=== PATIENT | female | born 1970 | race African-American/Black ===

== ENCOUNTER 2016-12-15 16:14 | Observation (INO) | payer OTHER ==
[2016-12-15 16:33] VITALS: BMI 40.8
--- NOTE | 2016-12-15 17:24 | PDOC ---
History of Present Illness <Sanket Eugene - Last Filed: 12/15/16 18:33> - General History Source: Patient Exam Limitations: No Limitations - History of Present Illness Initial Comments: 12/15/16 18:09 The patient is a 46 year old female with a significant past medical history of anemia, sent by PCP to the Emergency Department with fatigue for two weeks. The patient states that she has had worsening exhaustion, fatigue, and shortness of breath on exertion over the past two weeks. As per Dr. Huizar, the patient needs a blood transfusion due to blood lost from fibroids. The patient denies this. The patient states she went to see Gaye MICHAELS for a Pap smear, though they informed her that she does not need one until March. The patient admits that she is anemic. The patient denies nausea, vomiting, and diarrhea. Patient denies constipation, or melena. Patient denies vaginal discharge, dysuria, or hematuria. Patient denies chest pain, or palpitations. Patient denies headache, or dizziness. PCP: Dr. Huizar <Tosha Darden - Last Filed: 12/15/16 18:40> - General Chief Complaint: Blood Transfusion Stated Complaint: PCP SENT Time Seen by Provider: 12/15/16 17:23 Past History - Past Medical History Anemia: Yes Asthma: No Cancer: No Cardiac Disorders: No CVA: No COPD: No CHF: No Dementia: No Diabetes: No GI Disorders: No Disorders: No HTN: No Hypercholesterolemia: No Liver Disease: No Seizures: No Thyroid Disease: No - Surgical History Abdominal Surgery: No Appendectomy: No Cardiac Surgery: No Cholecystectomy: No Lung Surgery: No Neurologic Surgery: No Orthopedic Surgery: No - Immunization History Immunization Up to Date: Yes - Psycho/Social/Smoking Cessation Hx Anxiety: No Suicidal Ideation: No Smoking Status: Yes Smoking History: Current every day smoker Have you smoked in the past 12 months: Yes Number of Cigarettes Smoked Daily: 5 If you are a former smoker, when did you quit?: 01/23/14 Information on smoking cessation initiated: Yes 'Breaking Loose' booklet given: 01/03/14 Hx Alcohol Use: No Drug/Substance Use Hx: No Substance Use Type: None Hx Substance Use Treatment: No <Sanket Eugene - Last Filed: 06/22/17 18:33> <Tosha Darden - Last Filed: 12/15/16 18:40> - Past Medical History Allergies/Adverse Reactions: Allergies Allergy/AdvReac Type Severity Reaction Status Date / Time No Known Allergies Allergy Verified 03/01/16 12:16 Home Medications: Ambulatory Orders Albuterol Sulfate Inhaler - [Ventolin Hfa Inhaler -] 2 inh PO Q4H #1 inh Review of Systems - Review of Systems Able to Perform ROS?: Yes Comments:: 12/15/16 18:09 GENERAL/CONSTITUTIONAL: + exhaustion, + fatigue. No fever or chills. HEAD, EYES, EARS, NOSE AND THROAT: No change in vision. No ear pain or discharge. No sore throat. CARDIOVASCULAR: No chest pain or shortness of breath. RESPIRATORY: + sob on exertion. No cough, wheezing, or hemoptysis. GASTROINTESTINAL: No nausea, vomiting, diarrhea or constipation. GENITOURINARY: No dysuria, frequency, or change in urination. MUSCULOSKELETAL: No joint or muscle swelling or pain. No neck or back pain. SKIN: No rash NEUROLOGIC: No headache, vertigo, loss of consciousness, or change in strength/ sensation. ENDOCRINE: No increased thirst. No abnormal weight change. HEMATOLOGIC/LYMPHATIC: No easy bleeding, or history of blood clots. ALLERGIC/IMMUNOLOGIC: No hives or skin allergy. <Tosha Darden - Last Filed: 12/15/16 18:40> *Physical Exam - Vital Signs Last Vital Signs Temp Pulse Resp BP Pulse Ox 98.8 F 90 18 114/75 98 12/15/16 16:25 12/15/16 16:25 12/15/16 16:25 12/15/16 16:25 12/15/16 16:25 <Sanket Eugene - Last Filed: 12/15/16 18:33> - Vital Signs Last Vital Signs Temp Pulse Resp BP Pulse Ox 98.8 F 90 18 114/75 98 12/15/16 16:25 12/15/16 16:25 12/15/16 16:25 12/15/16 16:25 12/15/16 16:25 - Physical Exam Comments: 12/15/16 18:24 GENERAL: Awake, alert, and fully oriented, in no acute distress HEAD: No signs of trauma EYES: Pale conjunctiva. PERRLA, EOMI, sclera anicteric ENT: Auricles normal inspection, hearing grossly normal, nares patent, oropharynx clear without exudates. Moist mucosa NECK: Normal ROM, supple, no lymphadenopathy, JVD, or masses LUNGS: Breath sounds equal, clear to auscultation bilaterally. No wheezes, and no crackles HEART: Regular rate and rhythm, normal S1 and S2, no murmurs, rubs or gallops ABDOMEN: Soft, nontender, normoactive bowel sounds. No guarding, no rebound. No masses EXTREMITIES: Normal range of motion, no edema. No clubbing or cyanosis. No cords, erythema, or tenderness NEUROLOGICAL: Cranial nerves II through XII grossly intact. Normal speech, normal gait SKIN: Warm, Dry, normal turgor, no rashes or lesions noted. <Tosha Darden - Last Filed: 12/15/16 18:40> ED Treatment Course - LABORATORY CBC & Chemistry Diagram: 12/15/16 18:10 12/15/16 18:10 <Sanket Eugene - Last Filed: 12/15/16 18:33> - LABORATORY CBC & Chemistry Diagram: 12/15/16 18:10 12/15/16 18:10 <Tosha Darden - Last Filed: 12/15/16 18:40> Medical Decision Making - Medical Decision Making 12/15/16 18:36 Dr. Huizar was called at her office at 6:36, Dr. Josue spoke to Dr. Eugene about the patient's care. <Tosha Darden - Last Filed: 12/15/16 18:40> *DC/Admit/Observation/Transfer - Discharge Dispostion Admit: Yes - Attestations Physician Attestion: 12/15/16 17:24 I, Dr. Sanket Eugene, attest that this document has been prepared under my direction and personally reviewed by me in its entirety. I further attest, that it accurately reflects all work, treatment, procedures and medical decision -making performed by me. <Sanket Eugene - Last Filed: 12/15/16 18:33> - Attestations Scribe Attestion: 12/15/16 18:11 Documentation prepared by Tosha Darden, acting as medical aide for Sanket Eugene DO. <Tosha Darden - Last Filed: 12/15/16 18:40> Diagnosis at time of Disposition: Severe anemia - Discharge Dispostion Condition at time of disposition: Improved - Referrals Referrals: Lee Josue MD [Primary Care Provider] -
[2016-12-15 18:34] LABS: INR 1.09 (0.82-1.09)
[2016-12-15 18:58] LABS: ALBUMIN 3.9 g/dl (3.4-5.0); ALK PHOS 109 U/L (45-117); ANION GAP 10 (8-16); BILIRUBIN,TOTAL 0.4 mg/dL (0.2-1.0); CALCIUM 8.7 mg/dL (8.5-10.1); CO2 26 mmol/L (21-32); CREATININE 0.8 mg/dL (0.55-1.02); GLUCOSE,RANDOM 89 mg/dL (74-106); SGOT/AST 17 U/L (15-37); SGPT/ALT 23 U/L (12-78); TOT PROT 7.5 g/dl (6.4-8.2)
[2016-12-15 19:07] LABS: MCHC 28.2 g/dl (32.0-36.0); MEAN CELL VOLUME 65.5 fl (80-96); MEAN PLT VOLUME 8.9 fl (7.5-11.1); PLATELET COUNT 147 K/MM3 (134-434); RDW 22.4 % (11.6-15.6); WHITE BLOOD COUNT 5.5 K/mm3 (4.0-10.0)
[2016-12-15 19:10] LABS: MCH 18.4 pg (25.7-33.7)
[2016-12-15 20:18] LABS: BASOPHIL 0.6 % (0-2.0); EOSINOPHIL 2.6 % (0-4.5); NEUTROPHILS 56.2 % (42.8-82.8)
[2016-12-15 20:19] LABS: ANISOCYTOSIS 3+; HYPOCHROMIA 3+; MICROCYTOSIS 1+; OVALOCYTES 1+; PLATELET ESTIMATE ADEQUATE (NORMAL); POIKILOCYTOSIS 1+; POLYCHROMASIA 1+
[2016-12-16 07:51] LABS: URINE APPEARANCE SLCLOUDY; URINE BILIRUBIN NEGATIVE (NEGATIVE); URINE COLOR YELLOW; URINE GLUCOSE (UA) NEGATIVE (NEGATIVE); URINE KETONE NEGATIVE (NEGATIVE); URINE LEUK ESTERASE NEGATIVE (NEGATIVE); URINE NITRITE NEGATIVE (NEGATIVE); URINE PROTEIN NEGATIVE (NEGATIVE); URINE UROBILINOGEN NEGATIVE E.U./dl (0.2-1.0)
[2016-12-16 07:54] LABS: URINE BLOOD 1+ (NEGATIVE)
[2016-12-16 07:55] LABS: URINE BACTERIA RARE /hpf (NONE SEEN); URINE HYALINE CAST 3 /lpf; URINE MUCUS MODERATE; URINE RBC 11 /hpf (0-3); URINE WBC 1 /hpf (3-5)
--- NOTE | 2016-12-16 09:38 | PN ---
Progress Note, Physician Chief Complaint: Pt lying in bed Pt had 2 units of PRBC Pt feels better No new complaints today RPT cbc pending - Objective Vital Signs: Vital Signs Temperature 98.5 F 12/16/16 06:00 Pulse Rate 82 12/16/16 06:00 Respiratory Rate 18 12/16/16 06:00 Blood Pressure 101/64 12/16/16 06:00 O2 Sat by Pulse Oximetry (%) 98 12/15/16 16:25 Constitutional: Yes: No Distress, Pallor Eyes: Yes: Conjunctiva Clear HENT: Yes: Atraumatic, Normocephalic Neck: Yes: Supple, Trachea Midline Cardiovascular: Yes: Regular Rate and Rhythm Respiratory: Yes: Regular, CTA Bilaterally Gastrointestinal: Yes: Normal Bowel Sounds, Soft Musculoskeletal: Yes: WNL Extremities: Yes: WNL Edema: No Peripheral Pulses WNL: Yes Neurological: Yes: Alert, Oriented Psychiatric: Yes: Alert, Oriented Labs: INR, PTT INR 1.09 (0.82-1.09) 12/15/16 18:10 Laboratory Results - last 24 hr 12/15/16 12/15/16 12/15/16 18:10 18:10 18:10 WBC 5.5 RBC 3.79 Hgb 7.0 L D Hct 24.8 L D MCV 65.5 L D MCHC 28.2 L RDW 22.4 H D Plt Count 147 MPV 8.9 Neutrophils % 56.2 Lymphocytes % 34.5 D Monocytes % 6.1 Eosinophils % 2.6 Basophils % 0.6 Platelet Estimate Adequate Platelet Comment Few large plts Polychromasia 1+ Hypochromic-Microcytic 3+ Poikilocytosis 1+ Anisocytosis 3+ Microcytosis 1+ Macrocytosis 1+ Ovalocytes 1+ Morphology Comment Slide scanned INR 1.09 Sodium 141 Potassium 3.6 Chloride 105 Carbon Dioxide 26 Anion Gap 10 BUN 13 D Creatinine 0.8 D Creat Clearance w eGFR > 60 Random Glucose 89 Calcium 8.7 Total Bilirubin 0.4 AST 17 D ALT 23 D Alkaline Phosphatase 109 D Total Protein 7.5 Albumin 3.9 D Urine Color Urine Appearance Urine pH Urine Protein Urine Glucose (UA) Urine Ketones Urine Blood Urine Nitrite Urine Bilirubin Urine Urobilinogen Ur Leukocyte Esterase Urine RBC Urine WBC Ur Epithelial Cells Urine Bacteria Hyaline Casts Urine Mucus Blood Type Antibody Screen Crossmatch 12/15/16 12/16/16 18:10 07:44 WBC RBC Hgb Hct MCV MCHC RDW Plt Count MPV Neutrophils % Lymphocytes % Monocytes % Eosinophils % Basophils % Platelet Estimate Platelet Comment Polychromasia Hypochromic-Microcytic Poikilocytosis Anisocytosis Microcytosis Macrocytosis Ovalocytes Morphology Comment INR Sodium Potassium Chloride Carbon Dioxide Anion Gap BUN Creatinine Creat Clearance w eGFR Random Glucose Calcium Total Bilirubin AST ALT Alkaline Phosphatase Total Protein Albumin Urine Color Yellow Urine Appearance Slcloudy Urine pH 6.0 Urine Protein Negative Urine Glucose (UA) Negative Urine Ketones Negative Urine Blood 1+ H Urine Nitrite Negative Urine Bilirubin Negative Urine Urobilinogen Negative Ur Leukocyte Esterase Negative Urine RBC 11 Urine WBC 1 Ur Epithelial Cells Moderate Urine Bacteria Rare Hyaline Casts 3 Urine Mucus Moderate Blood Type O POSITIVE Antibody Screen Negative Crossmatch See Detail Assessment/Plan Symptomatic anemia Menorrahgia,fibroid uterus Fatigue palpitations tirdeness PLAN rpt cbc IF rpt cbc stable,anticipate d/c home
[2016-12-16 09:40] LABS: BASOPHIL 0.9 % (0-2.0); EOSINOPHIL 2.9 % (0-4.5); MCH 20.7 pg (25.7-33.7); MEAN PLT VOLUME 8.3 fl (7.5-11.1); NEUTROPHILS 51.8 % (42.8-82.8); PLATELET COUNT 102 K/MM3 (134-434); RDW 23.7 % (11.6-15.6); WHITE BLOOD COUNT 4.3 K/mm3 (4.0-10.0)
[2016-12-16 11:32] LABS: ANISOCYTOSIS 3+; HYPOCHROMIA 2+; MICROCYTOSIS 2+
[2016-12-16 11:46] VITALS: BP 103/74; PULSE 71; TEMP 98.2
--- NOTE | 2016-12-16 12:06 | HP ---
DATE OF ADMISSION: 12/15/2016 HISTORY OF PRESENT ILLNESS: The patient is a 46-year-old female, date of 1970, with a past medical history of anemia, referred to the emergency room for low hemoglobin and hematocrit. Patient working in the office for a regular checkup and mild shortness of breath and worsening for the last two weeks and fatigue and tiredness. So patient went for routine labs and found to be with hemoglobin and hematocrit low in the range of hemoglobin 6.6 and hematocrit 23.3. Patient presented to the ER for transfusion. In the emergency room, the hemoglobin and hematocrit were repeated, hemoglobin 7.9 and hematocrit 24.8. Patient was symptomatic with fatigue and shortness of breath and occasional dizziness, palpitations. Patient was subsequently transfused 2 units of blood. Patient has a history of fibroid uterus and menorrhagia and is following with [facility]. PAST MEDICAL HISTORY: History of anemia, fibroids and menorrhagia, three children, last childbirth through . Past medical history with history of anemia, fibroid uterus, and musculoskeletal pain. To rule out cervical radiculopathy, patient is awaiting for Neurology. SURGICAL HISTORY: . ALLERGIES: No known drug allergies. MEDICATIONS: Patient is taking Motrin and muscle relaxant and iron . PERSONAL HISTORY: Patient lives with the family. Patient is currently a smoker. REVIEW OF SYSTEMS: General: Patient complains of fatigue, is tired, pallor present. Cardiovascular: No chest pain. Occasional palpitations. Occasional dyspnea with exertion. Respiratory: Occasional shortness of breath. Gastrointestinal: Nothing significant. Musculoskeletal: Complains of upper back pain, and the pain radiates to both upper extremities. Central nervous system: Symptoms of cervical radiculopathy, awaiting for the neurology evaluation. PHYSICAL EXAMINATION: Vital Signs: The patient in the emergency room, temperature 98.8, blood pressure 114/75, respirations 18, pulse rate 90, saturation 98%. Head and Neck: Pallor present. Chest: Clear. Cardiovascular: The 1st and 2nd sound normal. Abdomen: Soft, no tenderness, no distension. Bowel sounds present. Extremities: No edema. LABORATORIES: Done in the ER. WBC 5.5, hemoglobin 7, hematocrit 24.8, platelets 147. CMP normal. AST/ALT normal. Patient brought for observation in the emergency room, advised for 2 units of blood transfusion. ADMITTING DIAGNOSIS: Symptomatic anemia, menorrhagia, fibroid uterus. PLAN: Blood transfusion. Will monitor the CBC. If CBC is stable after transfusion, will discharge the patient to home and will have her follow with Gynecology. JOB BARCENAS M.D. [id number]
--- NOTE | 2016-12-16 16:52 | DS ---
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
[2016-12-16] MEDS ORDERED: FERROUS SO4 325 MG TABLET (FP) PO SCH (22:00)
--- NOTE | 2016-12-18 22:02 | EKG ---
Test Reason : Blood Pressure : / mmHG Vent. Rate : 063 BPM Atrial Rate : 063 BPM P-R Int : 172 ms QRS Dur : 080 ms QT Int : 404 ms P-R-T Axes : 043 027 011 degrees QTc Int : 413 ms NORMAL SINUS RHYTHM LOW VOLTAGE QRS BORDERLINE ECG NO PREVIOUS ECGS AVAILABLE Confirmed by XIN SINGH MD ([id number]) on 12/18/2016 10:02:10 PM Referred By: Confirmed By:XIN SINGH MD
== END 2016-12-16 11:33 | disposition home or self-care (01) ==
LOC: JER 16:14 → JERBED 18:35 → UNDOADMOB 18:35 → INTOOBSV 18:35 → JERBED 12-16 09:41
PROVIDERS: ADMIT Family Medicine; ATTEND Family Medicine
PROC: 30233N1 Transfusion of Nonautologous Red Blood Cells into Peripheral Vein, Percutaneous Approach (ICD-10-PCS; principal; 2016-12-16)
DX: D64.9 Anemia, unspecified (principal); F17.210 Nicotine dependence, cigarettes, uncomplicated
CPT/HCPCS: 36415; 36430; 80053; 81003; 81015; 84703; 85025; 85610; 86850; 86900; 86901; 86922; 93005; 93010; 99284-25; G0378; P9038; P9058

== ENCOUNTER 2017-07-21 07:17 | Day surgery (SDC) | payer OTHER ==
[2017-07-21] MEDS ORDERED: IRON SUCROSE INJECTION 200 MG in SODIUM CHLORIDE 100 ML IVPB ONE (13:00)
[2017-07-21 18:46] VITALS: BP 105/61; PULSE 79; TEMP 98
== END 2017-07-21 18:39 | disposition home or self-care (01) ==
LOC: JONCNONCHE 07:17 → J7W 15:00 → JONCNONCHE 18:39
PROVIDERS: ATTEND Internal Medicine Hematology & Oncology
PROC: 3E033GC Introduction of Other Therapeutic Substance into Peripheral Vein, Percutaneous Approach (ICD-10-PCS; principal; 2017-07-21)
DX: D50.9 Iron deficiency anemia, unspecified (principal)
CPT/HCPCS: 96365; J1756

== ENCOUNTER 2017-07-28 07:47 | Day surgery (SDC) | payer OTHER ==
[2017-07-28] MEDS ORDERED: IRON SUCROSE INJECTION 200 MG in SODIUM CHLORIDE 100 ML IVPB ONE (13:00)
[2017-07-28 16:06] VITALS: TEMP 97.8
[2017-07-28 17:10] VITALS: BP 130/71; PULSE 72
== END 2017-07-28 17:11 | disposition home or self-care (01) ==
LOC: JONCNONCHE 07:47 → J7W 15:15 → JONCNONCHE 17:11
PROVIDERS: ATTEND Internal Medicine Hematology & Oncology
PROC: 3E033GC Introduction of Other Therapeutic Substance into Peripheral Vein, Percutaneous Approach (ICD-10-PCS; principal; 2017-07-28)
DX: D50.9 Iron deficiency anemia, unspecified (principal)
CPT/HCPCS: 96365; J1756

== ENCOUNTER 2017-08-04 07:26 | Day surgery (SDC) | payer OTHER ==
[2017-08-04] MEDS ORDERED: IRON SUCROSE INJECTION 200 MG in SODIUM CHLORIDE 100 ML IVPB ONE (13:00)
[2017-08-04 16:59] VITALS: BP 103/67; PULSE 83; TEMP 98.4
== END 2017-08-04 17:15 | disposition home or self-care (01) ==
LOC: JONCNONCHE 07:26 → J7W 15:40 → JONCNONCHE 17:15
PROVIDERS: ATTEND Internal Medicine Hematology & Oncology
PROC: 3E033GC Introduction of Other Therapeutic Substance into Peripheral Vein, Percutaneous Approach (ICD-10-PCS; principal; 2017-08-04)
DX: D50.9 Iron deficiency anemia, unspecified (principal)
CPT/HCPCS: 96365; J1756

== ENCOUNTER 2017-08-11 07:37 | Day surgery (SDC) | payer OTHER ==
[2017-08-11] MEDS ORDERED: IRON SUCROSE INJECTION 200 MG in SODIUM CHLORIDE 100 ML IVPB ONE (13:00)
[2017-08-11 15:23] VITALS: TEMP 98.2
[2017-08-11 17:19] VITALS: BP 100/67; PULSE 82
== END 2017-08-11 17:52 | disposition home or self-care (01) ==
LOC: JONCNONCHE 07:37 → J7W 14:40 → JONCNONCHE 17:52
PROVIDERS: ATTEND Internal Medicine Hematology & Oncology
PROC: 3E033GC Introduction of Other Therapeutic Substance into Peripheral Vein, Percutaneous Approach (ICD-10-PCS; principal; 2017-08-11)
DX: D50.9 Iron deficiency anemia, unspecified (principal)
CPT/HCPCS: 96365; J1756

== ENCOUNTER 2018-07-06 08:26 | Day surgery (SDC) | payer OTHER ==
[2018-07-06] MEDS ORDERED: ACETAMINOPHEN 325 MG TABLET (FP) PO ONE (15:30)
[2018-07-06] MEDS ORDERED: FERRIC CARBOXYMALTOSE 750 MG in SODIUM CHLORIDE 250 ML IVPB ONE (16:00)
[2018-07-06] MEDS ORDERED: SODIUM CHLORIDE 250 ML IV SCH (16:30)
[2018-07-06 17:45] VITALS: BP 101/59; PULSE 78
[2018-07-06 17:50] VITALS: TEMP 98.5
== END 2018-07-06 17:45 | disposition home or self-care (01) ==
LOC: JONCNONCHE 08:26 → J7W 15:20 → JONCNONCHE 17:45
PROVIDERS: ATTEND Internal Medicine Hematology & Oncology
PROC: 3E033GC Introduction of Other Therapeutic Substance into Peripheral Vein, Percutaneous Approach (ICD-10-PCS; principal; 2018-07-06)
DX: D50.9 Iron deficiency anemia, unspecified (principal)
CPT/HCPCS: 96360; 96365; J1439

== ENCOUNTER 2018-07-13 06:45 | Day surgery (SDC) | payer OTHER ==
[2018-07-13] MEDS ORDERED: DIPHENHYDRAMINE 50 MG in SODIUM CHLORIDE 50 ML IVPB ONE (12:00)
[2018-07-13] MEDS ORDERED: ACETAMINOPHEN 325 MG TABLET (FP) PO ONE (12:00)
[2018-07-13] MEDS ORDERED: FERRIC CARBOXYMALTOSE 750 MG in SODIUM CHLORIDE 250 ML IVPB ONE (12:30)
[2018-07-13] MEDS ORDERED: SODIUM CHLORIDE 250 ML IV SCH (17:30)
[2018-07-13 18:43] VITALS: TEMP 98.9
[2018-07-13 18:53] VITALS: BP 115/68; PULSE 75
== END 2018-07-13 18:45 | disposition home or self-care (01) ==
LOC: JONCNONCHE 06:45 → J7W 15:47 → JONCNONCHE 18:45
PROVIDERS: ATTEND Internal Medicine Hematology & Oncology
PROC: 3E033GC Introduction of Other Therapeutic Substance into Peripheral Vein, Percutaneous Approach (ICD-10-PCS; principal; 2018-07-13)
DX: D50.9 Iron deficiency anemia, unspecified (principal)
CPT/HCPCS: 96360; 96365; J1439

== ENCOUNTER 2018-11-13 07:25 | Day surgery (SDC) | payer OTHER ==
[~2018-11-13 07:25] MED LIST: ACETAMINOPHEN 325 MG TABLET (FP) PO ONE; methylPREDNISolone NA SUCC 125 MG/2 ML VIAL IVPB ONE
[2018-11-13] MEDS ORDERED: FERRIC CARBOXYMALTOSE 750 MG in SODIUM CHLORIDE 250 ML IVPB ONE (10:00)
[2018-11-13] MEDS ORDERED: ACETAMINOPHEN 325 MG TABLET (FP) ONE (16:03)
[2018-11-13] MEDS ORDERED: ACETAMINOPHEN 325 MG TABLET (FP) PO ONE (16:15)
[2018-11-13 17:27] VITALS: TEMP 97.9
[2018-11-13 17:28] VITALS: BP 118/84; PULSE 96
== END 2018-11-13 16:50 | disposition home or self-care (01) ==
LOC: JONCNONCHE 07:25 → J7W 15:36 → JONCNONCHE 16:50
PROVIDERS: ATTEND Internal Medicine Hematology & Oncology
PROC: 3E033GC Introduction of Other Therapeutic Substance into Peripheral Vein, Percutaneous Approach (ICD-10-PCS; principal; 2018-11-13)
DX: D50.9 Iron deficiency anemia, unspecified (principal)
CPT/HCPCS: 96365; J1439

== ENCOUNTER 2018-11-21 12:42 | Day surgery (SDC) | payer OTHER ==
[2018-11-20 16:01] VITALS: BMI 40.3
[2018-11-21 13:11] LABS: EPI CELLS 2.1 /HPF (0-5/HPF); HCG,QUALITATIVE URINE Negative; HYALINE CASTS 4 /lpf (0-8); URINE APPEARANCE CLEAR; URINE BACTERIA 2.4 /hpf (NEGATIVE); URINE BILIRUBIN NEGATIVE (NEGATIVE); URINE COLOR YELLOW; URINE GLUCOSE (UA) NEGATIVE (NEGATIVE); URINE KETONE NEGATIVE (NEGATIVE); URINE LEUK ESTERASE NEGATIVE (NEGATIVE); URINE NITRITE NEGATIVE (NEGATIVE); URINE PROTEIN NEGATIVE (NEGATIVE); URINE RBC 10 /hpf (0-4); URINE UROBILINOGEN 0.2 mg/dL (0.2-1.0); URINE WBC 0 /hpf (0-5)
[2018-11-21] MEDS ORDERED: PROPOFOL 20 ML ONE (14:33)
[2018-11-21] MEDS ORDERED: MIDAZOLAM HCL 2 MG/2 ML SINGLE DOSE VIAL ONE ×2 (14:33)
--- NOTE | 2018-11-21 14:57 | HP ---
Past Medical History - Primary Care Physician PCP:: Maurice Yeung - Admission Chief Complaint: 48yo female with menometrorrhagia, obesity and fibroid uterus, suspected endoemtrial polyp, admitted for hysteroscopy, D&C, polypectomy. History of Present Illness: Heavy menses Suspected endometrial polyp on US Fibroid ut Obese History Source: Patient, Medical Record Limitations to Obtaining History: No Limitations - Past Medical History FOXER: No: Alzheimer's, CVA, Dementia, Migraine, Multiple Sclerosis, Peripheral Neuropathy, Parkinson's, Seizure, Syncope, TIA, Vertigo, Other Cardiovascular: No: AFIB, Aneurysm, Aortic Insufficiency, Aortic Stenosis, CAD, CHF, Deep Vein Thrombosis, HTN, Hyperlipdemia, [place], Mitral Insufficiency, Mitral Stenosis, Murmur, Pulmonary Hypertension, Other Pulmonary: Yes: Asthma (Controlled) Gastrointestinal: No: Ascites, Cancer, Constipation, Crohn's Disease, Diverticulitis, Diverticulosis, Esophageal Varices, Gastritis, GERD, GI Bleed, Hemorrhoids, Hiatal Hernia, Inflamatory Bowel Disease, Irritable Bowel Disease, Pancreatitis, Peptic Ulcer Disease, Ulcerative Colitis, Other Hepatobiliary: No: Cirrhosis, Cholelithiasis, Cholecystitis, Choledocholithiasis , Hepatitis A, Hepatitis B, Hepatitis C, Other Renal/: No: Renal Failure, Renal Inusuff, BPH, Cancer, Hematuria, Hemodialysis , Neurogenic Bladder, Renal Calculi, UTI, Other Reproductive: No: Ectopic , Endometriosis, Fibroids, PID, Polycystic Ovary Syndrome, Postmenopausal, Other ...Para: 2 Heme/Onc: Yes: Anemia (Currently receiving iron infusions) Infectious Disease: No: AIDS, C-Diff, Herpes Zoster, HIV, MRSA, STD's, Tuberculosis, VREF, Other Psych: No: Addictions, Anxiety, Bipolar, Depression, Panic, Psychosis, Schizophrenia, Other Musculoskeletal: No: Bursitis, Chronic low back pain, Hemiparesis, Hemiplegia, Osteoarthritis, Paraplegia, Other Rheumatology: No: Fibromyalgia, Gout, Lupus, Rheumatoid Arthritis, Sarcoidosis, Vasculitis, Other ENT: No: Allergic Rhinitis, Sinusitis, Other Endocrine: No: Hossein's Disease, Jonathan's Disease, Diabetes Insipidus, Diabetes Mellitus, Hyperparathyroidism, Hyperthyroidism, Hypothyroidism, Osteopenia, SIADH, Other Dermatology: Yes: Other (Schamberg's disease) - Past Surgical History Past Surgical History: Yes: (x 2) Hx Myomectomy: No Hx Transabdominal Cerclage: No - Smoking History Smoking history: Former smoker Have you smoked in the past 12 months: No Aproximately how many cigarettes per day: 5 If you are a former smoker, when did you quit?: 01/23/14 - Alcohol/Substance Use Hx Alcohol Use: No History of Substance Use: reports: None - Social History Usual Living Arrangement: Yes: With Child ADL: Independent History of Recent Travel: No Home Medications - Allergies Allergies/Adverse Reactions: Allergies Allergy/AdvReac Type Severity Reaction Status Date / Time Penicillins Allergy Intermediate Hives Verified 11/20/18 16:09 - Home Medications Home Medications: Ambulatory Orders Albuterol Sulfate Inhaler - [Ventolin Hfa Inhaler -] 2 inh PO Q4H #1 inh Cholecalciferol (Vitamin D3) [Vitamin D3 -] 400 unit PO DAILY 11/21/18 Family Disease History - Family Disease History Family History: Denies Family Disease History: Other: Mother (brain aneurism) Review of Systems - Review of Systems Constitutional: reports: No Symptoms Eyes: reports: No Symptoms HENT: reports: No Symptoms Neck: reports: No Symptoms Cardiovascular: reports: No Symptoms Respiratory: reports: No Symptoms Gastrointestinal: reports: No Symptoms Genitourinary: reports: No Symptoms Breasts: reports: No Symptoms Reported Musculoskeletal: reports: No Symptoms Integumentary: reports: No Symptoms Neurological: reports: No Symptoms Endocrine: reports: No Symptoms Hematology/Lymphatic: reports: No Symptoms Psychiatric: reports: No Symptoms Pain Intensity: 0 Physical Exam-MANAGER OF RADIOLOGY Vital Signs: Vital Signs Temperature 98.1 F 11/21/18 13:39 Pulse Rate 83 11/21/18 13:39 Respiratory Rate 20 11/21/18 13:39 Blood Pressure 98/57 L 11/21/18 13:39 O2 Sat by Pulse Oximetry (%) 100 11/21/18 13:39 Constitutional: Yes: No Distress, Calm, Obese Eyes: Yes: WNL, Conjunctiva Clear HENT: Yes: WNL, Atraumatic, Normocephalic Neck: Yes: WNL, Supple, Trachea Midline Cardiovascular: Yes: WNL, Regular Rate and Rhythm Respiratory: Yes: WNL, Regular, CTA Bilaterally Gastrointestinal: Yes: Normal Bowel Sounds, Soft, Abdomen, Obese ...Rectal Exam: Yes: WNL Renal/: Yes: WNL Pelvis: Yes: WNL External Genitalia: Yes: Normal Vaginal Exam: Yes: Normal Cervix: Yes: Normal Uterus: Yes: Enlarged Adnexa: Normal: Left, Right Musculoskeletal: Yes: WNL Extremities: Yes: WNL Integumentary: Yes: WNL Neurological: Yes: WNL, Alert, Oriented ...Motor Strength: WNL Psychiatric: Yes: WNL, Alert, Oriented Imaging - Results Ultrasound: Report Reviewed Assessment/Plan 48yo female with menometrorrhagia, obesity, fibroid uterus, suspected endoemtrial polyp, admitted for hysteroscopy, D&C, polypectomy. We had discussed the risks, benefits, alternatives of surgery at length including but not limited to infection, bleeding, scarring, perforation, amenorrhea, infertility, hysterectomy, etc. The pt verbalized understanding and requested to proceed with surgery. I emphasized that all surgeries have risks and no guarantees can be provided.
[2018-11-21] MEDS ORDERED: GLYCOPYRROLATE 0.2 MG/1 ML VIAL ONE (15:05)
[2018-11-21] MEDS ORDERED: ceFAZolin SODIUM 1 GM VIAL IVPB ONE (15:06)
[2018-11-21] MEDS ORDERED: DEXAMETHASONE SOD PHOSPHATE 4 MG/1 ML VIAL ONE (15:13)
--- NOTE | 2018-11-21 15:57 | OP ---
Operative Note - Note: Operative Date: 11/21/18 Pre-Operative Diagnosis: Menorrhagia, uterine polyp, fibroid uterus, obesity Operation: Hysteroscopy, polypectomy, D&C Findings: Enlarged uterine cavity with polyp and submucosal myomas (with 90% w/in myometrium) Post-Operative Diagnosis: Same as Pre-op Surgeon: Maurice Yeung Anesthesiologist/SPECIAL EDUCATION TEACHING ASSISTANT: Godfrey Sow Anesthesia: General Specimens Removed: Uterine polyp, endometrial curettings. Estimated Blood Loss (mls): 30 Blood Volume Replaced (mls): 0 Fluid Volume Replaced (mls): 900 Operative Report Dictated: Yes
[2018-11-21] MEDS ORDERED: oxyCODONE HCL 5 MG TABLET PO PRN (16:03)
[2018-11-21] MEDS ORDERED: ONDANSETRON 4 MG/2 ML VIAL IVPUSH PRN (16:03)
[2018-11-21] MEDS ORDERED: LACTATED RINGERS SOLUTION 1,000 ML IV SCH (16:15)
--- NOTE | 2018-11-21 17:08 | OP ---
DATE OF OPERATION: 11/21/2018 PREOPERATIVE DIAGNOSES: 1. Menorrhagia. 2. Uterine polyp. 3. Fibroid uterus. 4. Obesity. POSTOPERATIVE DIAGNOSES: 1. Menorrhagia. 2. Uterine polyp. 3. Fibroid uterus. 4. Obesity. PROCEDURES PERFORMED: 1. Hysteroscopy 2. Polypectomy. 3. Dilatation and curettage. SURGEON: Marycruz Beal MD ANESTHESIOLOGIST: Godfrey Sow M.D. ANESTHESIA: General. COMPLICATIONS: None. ESTIMATED BLOOD LOSS: mL. INTRAVENOUS FLUIDS: 900 mL. PATHOLOGY: Endometrial polyps, endometrial curettings. FINDINGS: Examination under anesthesia was limited by obesity. A mobile uterus was noted. No pelvic or adnexal masses were noted. Hysteroscopy revealed an enlarged uterine cavity, measuring approximately 10 cm in length. A 1-cm endometrial polyp was noted on the ventral side of the uterine wall. Normal fallopian tube ostia and no other lesions were noted. There were multiple submucosal myomas observed, with over 90% within the myometrium. DESCRIPTION OF PROCEDURE: The patient was met preoperatively. The risks, benefits and alternatives of surgery were discussed in detail. All questions were answered. The patient was then brought to the OR, with the IV running. She was placed on the surgical table in the supine position. General anesthesia was achieved without difficulty. The patient was then placed in a dorsal lithotomy position using adjustable Favian stirrups. The patient was examined under anesthesia, with the findings as described above. The patient was then prepped and draped in the usual sterile fashion. A time-out procedure was conducted as per standard protocol. A weighted speculum was then introduced inside the patient's vagina, with good visualization of the cervix. The anterior cervical lip was grasped with a single-tooth tenaculum. The internal cervical os was then dilated using a graduated set of dilators to accommodate a size number 25 Lakhani dilator. A diagnostic hysteroscope was then performed. An enlarged uterine cavity was noted with a uterine polyp on the ventral uterine wall. There were multiple submucosal fibroids noted with approximately 90% of the fibroid body within the myometrium. No other lesions were noted. An operative hysteroscopy was then performed and the uterine polyp was excised. An attempt to resect some of the submucosal fibroid failed because the instrument was unable to effectively resect the myomas. Therefore, the hysteroscope was removed from the patient. A sharp curettage of the uterine cavity was then performed. The tissue was sent to Pathology for evaluation. Once this was completed, all of the instruments were removed from the patient. Good hemostasis was noted at the end of the procedure. Sponge, lap and needle counts were correct. The patient was transferred to the recovery room and in stable condition and awake. MARYCRUZ BEAL M.D. CHARLES/[id number]
[2018-11-21 18:25] VITALS: TEMP 98.6
[2018-11-21 18:37] VITALS: BP 124/70; PULSE 79
--- NOTE | 2018-11-26 16:53 | PATH ---
Surgical Pathology Report Patient Name: RACIEL HERNANDEZ [facility]. Rec. #: [id number] /Age/Gender: 1970 (Age: 48) / F Account: [id number] Location: [facility] SURGICAL Taken: 11/21/2018 Received: 11/22/2018 Reported: 11/26/2018 Physicians: Maurice Yeung M.D. Specimen(s) Received A: ENDOMETRIAL CURETTINGS B: POLYP Clinical History Fibroid uterus, menorrhagia Final Diagnosis A. ENDOMETRIAL CURETTINGS: FRAGMENTS OF PROLIFERATIVE ENDOMETRIUM. B. POLYP, RESECTION: FRAGMENTS OF ENDOMETRIAL POLYP. SEPARATE FEW FRAGMENTS OF SMOOTH MUSCLE BUNDLES, MAY REPRESENT SUBMUCOSAL LEIOMYOMA IN A PROPERLY CLINICAL SETTING. SUGGEST CLINICAL CORRELATION. SEPARATE FRAGMENTS OF PROLIFERATIVE ENDOMETRIUM. Electronically Signed Keysha Rick M.D. Gross Description A. Received in formalin labeled "endometrial curettings," is a 3.5 x 2.6 x 0.4 cm aggregate of blevins-brown soft tissue fragments admixed with blood clot. The formalin is filtered and the specimen is entirely submitted in 2 cassettes. B. Received in formalin labeled "polyp resection," is a 2.5 x 2.0 x 0.3 cm aggregate of blevins soft tissue fragments. The formalin is filtered and the specimen is entirely submitted in one cassette. 11/22/201811/22/2018
== END 2018-11-21 18:35 | disposition home or self-care (01) ==
LOC: JASU-SURG 12:42
PROVIDERS: ATTEND Obstetrics & Gynecology
PROC: 0UB98ZX Excision of Uterus, Via Natural or Artificial Opening Endoscopic, Diagnostic (ICD-10-PCS; principal; 2018-11-21 14:00)
PROC: 0UDB7ZX Extraction of Endometrium, Via Natural or Artificial Opening, Diagnostic (ICD-10-PCS; 2018-11-21 14:00)
DX: N92.0 Excessive and frequent menstruation with regular cycle (principal); N84.0 Polyp of corpus uteri; D25.0 Submucous leiomyoma of uterus; E66.9 Obesity, unspecified; Z68.41 Body mass index [BMI] 40.0-44.9, adult; J45.909 Unspecified asthma, uncomplicated; Z88.0 Allergy status to penicillin; Z87.891 Personal history of nicotine dependence
CPT/HCPCS: 81003; 84703; 86850; 86900; 86901; 88305-TC; 94760

== ENCOUNTER 2019-04-03 05:17 | Day surgery (SDC) | payer OTHER ==
[2019-04-02 14:18] VITALS: BMI 41.1
--- NOTE | 2019-04-03 16:08 | HP ---
History & Physical Update - History History: No Change - Physical Physical: No Change - Assessment Assessment: No Change - Plan Plan: No Change
[2019-04-03] MEDS ORDERED: ROCURONIUM BROMIDE 50 MG/5 ML SYRINGE ONE (16:22)
[2019-04-03] MEDS ORDERED: PROPOFOL 20 ML ONE ×2 (16:22)
[2019-04-03] MEDS ORDERED: ceFAZolin SODIUM 1 GM VIAL IVPB ONE (16:45)
[2019-04-03] MEDS ORDERED: NEOSTIGMINE METHYLSULFATE 0.5 MG/ML - 10 ML MDV ONE (17:10)
[2019-04-03] MEDS ORDERED: ALBUTEROL SO4 8 GM HFA INHALER IH PRN (17:22)
--- NOTE | 2019-04-03 17:27 | OP ---
Operative Note - Note: Operative Date: 04/03/19 Pre-Operative Diagnosis: Menorrhagia, fibroid uterus Operation: Hysteroscopy, endometrial ablation. Findings: 1. EUA showed enlarged uterus, c/w 10wk (exam limited by body habitus) 2. Hysteroscopy showed enlarged endometrial cavity, sonded to 9cm. Left mid- body submucosal myoma. Post-Operative Diagnosis: Same as Pre-op Surgeon: Maurice Yeung Anesthesiologist/HEEL SPRAYER: Jean Marie Thompson Anesthesia: General Estimated Blood Loss (mls): 5 Blood Volume Replaced (mls): 0 Fluid Volume Replaced (mls): 700 Operative Report Dictated: Yes
[2019-04-03] MEDS ORDERED: ONDANSETRON 4 MG/2 ML VIAL IVPUSH PRN (17:42)
[2019-04-03] MEDS ORDERED: oxyCODONE HCL 5 MG TABLET PO PRN (17:42)
[2019-04-03] MEDS ORDERED: MORPHINE SULFATE 2 MG/ML VIAL IVPUSH PRN (17:42)
[2019-04-03] MEDS ORDERED: LACTATED RINGERS SOLUTION 1,000 ML IV SCH (17:45)
--- NOTE | 2019-04-03 18:06 | OP ---
DATE OF OPERATION: 04/03/2019 PREOPERATIVE DIAGNOSIS: Menorrhagia, fibroid uterus, morbid obesity. POSTOPERATIVE DIAGNOSIS: Menorrhagia, fibroid uterus, morbid obesity. PROCEDURE: Hysteroscopy, endometrial ablation, with a [employer] HTA system. SURGEON: Marycruz Beal MD ANESTHESIOLOGIST: Jean Marie Thompson MD ANESTHESIA: General. COMPLICATIONS: None. ESTIMATED BLOOD LOSS: 5 mL. INTRAVENOUS FLUIDS: 700 mL. FINDINGS: Examination under anesthesia revealed an enlarged uterus consistent with approximately a 10-week gestation; however, the examination was limited by patient's body habitus. Hysteroscopy revealed an enlarged uterine cavity which was sounded to approximately 9 cm in length. There was a left mid uterine body submucosal myoma noted on hysteroscopy examination. Endometrial ablation was performed under direct visualization and without complications. PROCEDURE: The patient was met preoperatively. Risks, benefits, alternatives of surgery were discussed at length. The consent form was reviewed and explained. The patient verbalized her understanding, the consent form was signed, and the patient requested to proceed with the surgery. The patient was brought to the OR with IV running. She was placed on the surgical table in the supine position. General anesthesia was achieved without difficulty. The patient was then placed in a dorsal lithotomy position using adjustable Favian stirrups. She was examined under anesthesia. Examination revealed a normal cervix. There was some vaginal bleeding noted consistent with the patient's menses. The uterus appeared to be enlarged, approximately 10 weeks in size, however, the examination was limited by patient's body habitus. The patient was then prepped and draped in the usual sterile fashion. A timeout was conducted as per standard protocol. A weighted speculum was introduced inside the patient's vagina with good visualization of the cervix. The cervix was grasped with a single-tooth tenaculum. The cervical os was dilated to accommodate a size 25 Lakhani dilator. Hysteroscopy was then performed. The uterine cavity was noted to be slightly enlarged and sounded to approximately 9 cm in length. The left side of mid uterine fundus contained a submucosal myoma. Otherwise, there were no abnormalities noted. A global thermal endometrial ablation was then performed using a [employer] HTA system without complications and under direct visualization. Good hemostasis was noted at the end of the procedure. The patient tolerated the procedure well. Once the procedure was completed, all of the instruments were removed from the patient. Once again good hemostasis was noted. Sponge, lap, instrument counts were correct. The patient was returned to supine position. She was then transferred to recovery room in stable condition and awake. MARYCRUZ BEAL M.D. CHARLES/[id number]
[2019-04-03] MEDS ORDERED: ONDANSETRON 4 MG/2 ML VIAL ONE (18:56)
[2019-04-03 21:17] VITALS: BP 108/82; PULSE 69; TEMP 97.9
== END 2019-04-03 20:10 | disposition home or self-care (01) ==
LOC: JASU-SURG 05:17
PROVIDERS: ATTEND Obstetrics & Gynecology
PROC: 0U5B8ZZ Destruction of Endometrium, Via Natural or Artificial Opening Endoscopic (ICD-10-PCS; principal; 2019-04-03 15:30)
DX: N92.0 Excessive and frequent menstruation with regular cycle (principal); D25.9 Leiomyoma of uterus, unspecified; E66.01 Morbid (severe) obesity due to excess calories
CPT/HCPCS: 36415; 84703; 86850; 86900; 86901; 94760